=== PATIENT | female | born 1950 | race Caucasian/White ===

== ENCOUNTER → 2016-11-23 | Outpatient (CLI) | payer MEDICARE, MEDICAID ==
[~2016-11-23] MED LIST: ASPIRIN1 POW PO; CALCIUM600 MG; CLINDAMYCIN HC300 MG PO; DAILY VALUE1 EACH PO; DILANTIN PO; HYDROCODONE BIT1 T11 PO; KEPPRA500 MG PO; LYRICA75 M1 PO; NAPROSYN500 MG PO; PERCOCET 325 MG1 TA7 PO; PREDNISONE20 MG PO; PREMPRO 0.3 MG-1 TA1; TRAMADOL HCL50 MG PO; ULTRAM50 MG PO; ZITHROMAX Z PA250 MG PO
== END | disposition home or self-care (01) ==
LOC: ORTHO 03:12
DX: M25.512 Pain in left shoulder (principal); M79.602 Pain in left arm

== ENCOUNTER → 2018-10-08 | Outpatient (CLI) | payer MEDICARE, MEDICAID ==
[~2018-10-08] MED LIST changes: +ASPIRIN CHEWABL81 MG PO; +CALCIUM500 M1 PO; +CEFTRIAXONE1 GM IJ; +CELECOXIB200 M1 PO; +ESTROVEN 155 M155 MG PO; +FLAGYL500 MG PO; +POTASSIUM CHLO20 ME4 PO; +VITAMIN D31 ML PO; +VOLTAREN100 GM T
[2018-10-08 09:54] LABS: BASO # 0.1 10*3/uL (0.0-0.1); BASO % 1.2 % (0.0-1.0); BUN 10 mg/dl (7-24); CHLORIDE 106 mmol/L (98-107); CREATININE 1.04 mg/dL (0.55-1.02); EOS # 0.2 10*3/uL (0.0-0.4); EOS % 2.7 % (1.0-4.0); HEMATOCRIT 46.1 % (37.0-47.0); HEMOGLOBIN 14.8 g/dl (12.0-16.0); LYMPH # 1.7 10*3/uL (1.3-4.4); LYMPH % 25.7 % (27.0-41.0); MEAN CELL VOLUME 91.7 fl (81.0-99.0); MEAN CORPUSCULAR HGB 29.4 pg (27.0-31.0); MEAN CORPUSCULAR HGB CONC 32.1 g/dl (33.0-37.0); MONO # 0.5 10*3/uL (0.1-1.0); MONO % 7.7 % (3.0-9.0); NEUT # 4.1 10*3/uL (2.3-7.9); NEUT % 62.5 % (47.0-73.0); PLATELET COUNT AUTOMATED 175 10*3/uL (130-400); POTASSIUM 4.2 mmol/L (3.5-5.1); RED BLOOD COUNT 5.03 10*6/uL (4.10-5.10); RED CELL DISTRI WIDTH 14.6 % (0-14.5); SODIUM 140 mmol/L (136-145); WHITE BLOOD COUNT 6.6 10*3/uL (4.8-10.8)
== END | disposition home or self-care (01) ==
LOC: LAB 09:06
PROVIDERS: Orthopaedic Surgery
DX: Z79.1 Long term (current) use of non-steroidal anti-inflammatories (NSAID) (principal)

== ENCOUNTER → 2019-07-19 | Outpatient (CLI) | payer MEDICARE, MEDICAID | END | disposition home or self-care (01) | LOC: ORTHO 00:33 | DX: M65.311 Trigger thumb, right thumb (principal); M65.332 Trigger finger, left middle finger ==

== ENCOUNTER → 2020-03-05 | Outpatient (CLI) | payer MEDICARE, MEDICAID | END | disposition home or self-care (01) | LOC: RAD 10:56 | DX: Z01.818 Encounter for other preprocedural examination (principal); J43.9 Emphysema, unspecified; M16.11 Unilateral primary osteoarthritis, right hip ==

== ENCOUNTER 2021-03-06 08:39 | Inpatient (IN) | payer MEDICARE, MEDICAID ==
[~2021-03-06] VITALS: Wt 72.6 kg
[2021-03-06 08:49] VITALS: BP 116/73
[2021-03-06 09:26] LABS: BASO # 0.1 10*3/uL (0.0-0.1); BASO % 0.8 % (0.0-1.0); EOS # 0.1 10*3/uL (0.0-0.4); EOS % 1.2 % (1.0-4.0); HEMATOCRIT 48.8 % (37.0-47.0); LYMPH # 1.4 10*3/uL (1.3-4.4); LYMPH % 18.3 % (27.0-41.0); MEAN CELL VOLUME 92.2 fl (81.0-99.0); MEAN CORPUSCULAR HGB 29.9 pg (27.0-31.0); MEAN CORPUSCULAR HGB CONC 32.4 g/dl (33.0-37.0); MEAN PLATELET VOLUME 12.2 fl (9.6-12.3); MONO # 0.5 10*3/uL (0.1-1.0); MONO % 6.8 % (3.0-9.0); NEUT # 5.7 10*3/uL (2.3-7.9); NEUT % 72.5 % (47.0-73.0); PLATELET COUNT AUTOMATED 172 10*3/uL (130-400); RED BLOOD COUNT 5.29 10*6/uL (4.10-5.10); RED CELL DISTRI WIDTH 15.3 % (0-14.5); WHITE BLOOD COUNT 7.8 10*3/uL (4.8-10.8)
[2021-03-06 09:43] LABS: ALBUMIN 3.2 gm/dl (3.1-4.5); ALKALINE PHOSPHATASE 91 U/L (45-117); BUN 9 mg/dl (7-24); CHLORIDE 111 mmol/L (98-107); CREATININE 1.12 mg/dL (0.55-1.02); LIPASE 121 U/L (73-393); POTASSIUM 3.7 mmol/L (3.5-5.1); SGOT/AST 15 IU/L (3-35); SGPT/ALT 15 U/L (12-78); SODIUM 146 mmol/L (136-145); TOTAL PROTEIN 6.4 gm/dL (6.4-8.2)
[2021-03-06 09:53] LABS: PHENYTOIN (DILANTIN) < 0.4 ug/ml (10-20); TROPONIN I 0.078 ng/ml (<0.045)
[2021-03-06 11:00] VITALS: BP 116/74
[2021-03-06 11:36] LABS: BILIRUBIN Negative (Negative); BLOOD 1+ (Negative); CLARITY Turbid (Clear); COLOR Yellow (Yellow); GLUCOSE Negative (Negative); KETONE Trace (Negative); LEUKO ESTERASE 3+ (Negative); NITRITE Positive (Negative); PH 7.5 (4.5-8.0)
[2021-03-06] MEDS ORDERED: KEPPRA500 MG PO (11:39)
[2021-03-06] MEDS ORDERED: TRAMADOL HCL50 MG PO (11:40)
[2021-03-06 11:48] LABS: BACTERIA 4+; WBC TNTC wbc/hpf (0-5)
[2021-03-06 13:08] VITALS: BP 116/72
[2021-03-06 15:25] VITALS: BP 118/70
[2021-03-06 17:16] VITALS: BP 118/72
[2021-03-06 19:30] VITALS: BP 118/72
[2021-03-07 00:41] VITALS: BP 105/54
[2021-03-07 02:08] VITALS: BP 105/60
[2021-03-07 06:47] VITALS: BP 110/60
[2021-03-07 07:24] VITALS: BP 123/69
[2021-03-07] MEDS ORDERED: PROTONIX40 MG PO (11:39)
[2021-03-07] MEDS ORDERED: ZOFRAN4 MG PO (11:39)
[2021-03-07] MEDS ORDERED: CIPRO500 MG PO (11:39)
== END 2021-03-07 11:30 | disposition home or self-care (01) | DRG 641 ==
LOC: ED 08:39 → EDHOLD 10:44
PROVIDERS: Emergency Medicine; ADMIT Internal Medicine; ATTEND Internal Medicine
DX: E86.0 Dehydration (principal); N39.0 Urinary tract infection, site not specified; E87.0 Hyperosmolality and hypernatremia; R11.2 Nausea with vomiting, unspecified; R79.89 Other specified abnormal findings of blood chemistry; R13.10 Dysphagia, unspecified; E87.8 Other disorders of electrolyte and fluid balance, not elsewhere classified; I10 Essential (primary) hypertension; G62.9 Polyneuropathy, unspecified; E03.9 Hypothyroidism, unspecified; E78.5 Hyperlipidemia, unspecified; K21.9 Gastro-esophageal reflux disease without esophagitis; Z90.49 Acquired absence of other specified parts of digestive tract; Z88.0 Allergy status to penicillin; Z98.51 Tubal ligation status; Z82.49 Family history of ischemic heart disease and other diseases of the circulatory system; Z83.3 Family history of diabetes mellitus; Z79.82 Long term (current) use of aspirin

== ENCOUNTER 2021-06-14 12:27 | Inpatient (IN) | payer MEDICARE, MEDICAID ==
[~2021-06-14] VITALS: Ht 172.7 cm; Wt 85.4 kg
[~2021-06-14 12:27] MED LIST changes: +CIPRO500 MG PO; +PROTONIX40 MG PO; +ZOFRAN4 MG PO
[2021-06-14 12:51] VITALS: BP 107/77
[2021-06-14 16:36] LABS: BASO # 0.1 10*3/uL (0.0-0.1); BASO % 0.3 % (0.0-1.0); EOS % 0.3 % (1.0-4.0); HEMATOCRIT 45.3 % (37.0-47.0); LYMPH # 3.3 10*3/uL (1.3-4.4); LYMPH % 22.8 % (27.0-41.0); MEAN CORPUSCULAR HGB 30.1 pg (27.0-31.0); MEAN PLATELET VOLUME 12.4 fl (9.6-12.3); MONO # 0.8 10*3/uL (0.1-1.0); MONO % 5.8 % (3.0-9.0); NEUT # 10.2 10*3/uL (2.3-7.9); NEUT % 70.5 % (47.0-73.0); PLATELET COUNT AUTOMATED 267 10*3/uL (130-400); RED BLOOD COUNT 4.82 10*6/uL (4.10-5.10); WHITE BLOOD COUNT 14.5 10*3/uL (4.8-10.8)
[2021-06-14 16:54] LABS: ALBUMIN 3.3 gm/dl (3.1-4.5); CREATININE 1.34 mg/dL (0.55-1.02); POTASSIUM 4.1 mmol/L (3.5-5.1); TOTAL PROTEIN 7.4 gm/dL (6.4-8.2)
[2021-06-14 17:00] VITALS: BP 107/74
[2021-06-14] MEDS ORDERED: ELIQUIS5 M1 PO (18:11)
[2021-06-14 19:38] VITALS: BP 118/62
[2021-06-15] VITALS: BP 112/56
[2021-06-15 06:33] LABS: BASO # 0.1 10*3/uL (0.0-0.1); BASO % 0.8 % (0.0-1.0); EOS # 0.1 10*3/uL (0.0-0.4); EOS % 0.7 % (1.0-4.0); HEMATOCRIT 41.6 % (37.0-47.0); LYMPH # 2.4 10*3/uL (1.3-4.4); MEAN CELL VOLUME 95.9 fl (81.0-99.0); MEAN CORPUSCULAR HGB 30.4 pg (27.0-31.0); MEAN CORPUSCULAR HGB CONC 31.7 g/dl (33.0-37.0); MEAN PLATELET VOLUME 12.3 fl (9.6-12.3); MONO # 0.5 10*3/uL (0.1-1.0); NEUT # 7.4 10*3/uL (2.3-7.9); NEUT % 70.1 % (47.0-73.0); PLATELET COUNT AUTOMATED 235 10*3/uL (130-400); RED BLOOD COUNT 4.34 10*6/uL (4.10-5.10); WHITE BLOOD COUNT 10.6 10*3/uL (4.8-10.8)
[2021-06-15 06:51] LABS: ALBUMIN 2.9 gm/dl (3.1-4.5); CREATININE 1.29 mg/dL (0.55-1.02); POTASSIUM 3.8 mmol/L (3.5-5.1); TOTAL PROTEIN 6.7 gm/dL (6.4-8.2)
[2021-06-15 06:59] LABS: THYROID STIM HORMONE (HS) 2.51 uIU/ml (0.358-4.75)
[2021-06-15 08:00] VITALS: BP 98/59
[2021-06-15 10:37] VITALS: BP 96/48
[2021-06-15 11:47] VITALS: BP 85/48
[2021-06-15 12:02] VITALS: BP 94/52
[2021-06-15 12:17] VITALS: BP 96/53
[2021-06-15] MEDS ORDERED: Carafate1 GM PO (13:09)
[2021-06-15] MEDS ORDERED: PROTONIX40 MG PO (13:09)
== END 2021-06-15 14:18 | disposition home or self-care (01) | DRG 384 ==
LOC: ED 12:27 → 5E 17:31 → EDHOLD 17:31 → 5E 19:30
PROVIDERS: Family Medicine; Student in an Organized Health Care Education/Training Program; ADMIT Internal Medicine; ATTEND Internal Medicine
PROC: 0DB68ZX Excision of Stomach, Via Natural or Artificial Opening Endoscopic, Diagnostic (ICD-10-PCS; principal; 2021-06-15)
DX: K26.3 Acute duodenal ulcer without hemorrhage or perforation (principal); R65.10 Systemic inflammatory response syndrome (SIRS) of non-infectious origin without acute organ dysfunction; I80.201 Phlebitis and thrombophlebitis of unspecified deep vessels of right lower extremity; E86.0 Dehydration; R13.10 Dysphagia, unspecified; N18.32 Chronic kidney disease, stage 3b; K21.9 Gastro-esophageal reflux disease without esophagitis; I12.9 Hypertensive chronic kidney disease with stage 1 through stage 4 chronic kidney disease, or unspecified chronic kidney disease; E78.5 Hyperlipidemia, unspecified; Z96.642 Presence of left artificial hip joint; Z96.652 Presence of left artificial knee joint; E87.8 Other disorders of electrolyte and fluid balance, not elsewhere classified; K21.00 Gastro-esophageal reflux disease with esophagitis, without bleeding; Z88.0 Allergy status to penicillin; Z82.49 Family history of ischemic heart disease and other diseases of the circulatory system; Z90.49 Acquired absence of other specified parts of digestive tract

== ENCOUNTER 2021-12-03 12:29 | Inpatient (IN) | payer MEDICARE, MEDICAID ==
[~2021-12-03] VITALS: Ht 172.7 cm; Wt 84.6 kg
[~2021-12-03 12:29] MED LIST changes: +Carafate1 GM PO; +ELIQUIS5 M1 PO
[2021-12-03 12:43] VITALS: BP 135/50
[2021-12-03 13:23] LABS: BASO # 0.1 10*3/uL (0.0-0.1); BASO % 0.8 % (0.0-1.0); EOS # 0.1 10*3/uL (0.0-0.4); EOS % 1.1 % (1.0-4.0); HEMATOCRIT 40.8 % (37.0-47.0); LYMPH # 1.9 10*3/uL (1.3-4.4); LYMPH % 18.5 % (27.0-41.0); MEAN CELL VOLUME 87.4 fl (81.0-99.0); MEAN CORPUSCULAR HGB 28.3 pg (27.0-31.0); MEAN CORPUSCULAR HGB CONC 32.4 g/dl (33.0-37.0); MEAN PLATELET VOLUME 12.3 fl (9.6-12.3); MONO # 0.6 10*3/uL (0.1-1.0); MONO % 6.1 % (3.0-9.0); NEUT # 7.5 10*3/uL (2.3-7.9); NEUT % 73.2 % (47.0-73.0); PLATELET COUNT AUTOMATED 209 10*3/uL (130-400); RED BLOOD COUNT 4.67 10*6/uL (4.10-5.10); WHITE BLOOD COUNT 10.3 10*3/uL (4.8-10.8)
[2021-12-03 13:37] LABS: ALKALINE PHOSPHATASE 65 U/L (45-117); BUN 42 mg/dl (7-24); CHLORIDE 103 mmol/L (98-107); CREATININE 7.38 mg/dL (0.55-1.02); SGOT/AST 33 IU/L (3-35); SGPT/ALT 18 U/L (12-78); SODIUM 139 mmol/L (136-145)
[2021-12-03 13:50] LABS: PHENYTOIN (DILANTIN) < 0.4 ug/ml (10-20)
[2021-12-03 17:45] VITALS: BP 138/53
[2021-12-03 17:55] VITALS: BP 118/62
[2021-12-03 18:27] LABS: BILIRUBIN Negative (Negative); BLOOD 2+ (Negative); CLARITY Cloudy (Clear); COLOR Yellow (Yellow); GLUCOSE Negative (Negative); KETONE Trace (Negative); LEUKO ESTERASE 3+ (Negative); NITRITE Positive (Negative); UROBILINOGEN 0.2 E.U./dl (0.0-1.0)
[2021-12-03 18:39] LABS: BACTERIA 4+; WBC TNTC wbc/hpf (0-5)
[2021-12-03 20:00] VITALS: BP 116/57
[2021-12-03 20:31] LABS: CREATININE 7.27 mg/dL (0.55-1.02); POTASSIUM 3.5 mmol/L (3.5-5.1)
[2021-12-04] VITALS: BP 112/55
[2021-12-04 05:40] LABS: CREATININE 6.38 mg/dL (0.55-1.02); POTASSIUM 3.5 mmol/L (3.5-5.1); TOTAL PROTEIN 5.1 gm/dL (6.4-8.2)
[2021-12-04 06:10] LABS: BASO # 0.1 10*3/uL (0.0-0.1); BASO % 0.9 % (0.0-1.0); EOS # 0.3 10*3/uL (0.0-0.4); EOS % 3.8 % (1.0-4.0); HEMATOCRIT 33.4 % (37.0-47.0); LYMPH % 29.7 % (27.0-41.0); MEAN CELL VOLUME 89.1 fl (81.0-99.0); MEAN CORPUSCULAR HGB 29.3 pg (27.0-31.0); MEAN CORPUSCULAR HGB CONC 32.9 g/dl (33.0-37.0); MONO # 0.4 10*3/uL (0.1-1.0); NEUT % 59.5 % (47.0-73.0); PLATELET COUNT AUTOMATED 171 10*3/uL (130-400); RED BLOOD COUNT 3.75 10*6/uL (4.10-5.10); RED CELL DISTRI WIDTH 15.9 % (0-14.5); WHITE BLOOD COUNT 6.8 10*3/uL (4.8-10.8)
[2021-12-04 08:00] VITALS: BP 110/49
[2021-12-04 12:00] VITALS: BP 115/55
[2021-12-04 16:00] VITALS: BP 112/47
[2021-12-04 16:57] LABS: VITAMIN D, 25-HYDROXY 57.4 ng/mL (30-100)
[2021-12-04 20:00] VITALS: BP 112/62
[2021-12-05] VITALS: BP 101/49
[2021-12-05 08:00] VITALS: BP 92/40
[2021-12-05 08:46] LABS: BASO # 0.1 10*3/uL (0.0-0.1); BASO % 0.7 % (0.0-1.0); EOS # 0.2 10*3/uL (0.0-0.4); HEMATOCRIT 38.7 % (37.0-47.0); LYMPH # 1.4 10*3/uL (1.3-4.4); LYMPH % 19.6 % (27.0-41.0); MEAN CELL VOLUME 87.8 fl (81.0-99.0); MEAN CORPUSCULAR HGB 28.1 pg (27.0-31.0); MEAN PLATELET VOLUME 12.9 fl (9.6-12.3); MONO # 0.4 10*3/uL (0.1-1.0); MONO % 6.2 % (3.0-9.0); NEUT % 70.4 % (47.0-73.0); PLATELET COUNT AUTOMATED 185 10*3/uL (130-400); RED BLOOD COUNT 4.41 10*6/uL (4.10-5.10); RED CELL DISTRI WIDTH 15.9 % (0-14.5); WHITE BLOOD COUNT 7.1 10*3/uL (4.8-10.8)
[2021-12-05 08:58] LABS: CREATININE 6.22 mg/dL (0.55-1.02); POTASSIUM 3.5 mmol/L (3.5-5.1)
[2021-12-05 12:00] VITALS: BP 124/56
[2021-12-05 16:00] VITALS: BP 122/76
[2021-12-05 20:00] VITALS: BP 107/52
[2021-12-06] VITALS: BP 111/55
[2021-12-06 05:21] LABS: CREATININE 5.59 mg/dL (0.55-1.02); POTASSIUM 3.3 mmol/L (3.5-5.1)
[2021-12-06 06:13] LABS: BASO % 0.6 % (0.0-1.0); EOS # 0.3 10*3/uL (0.0-0.4); EOS % 3.7 % (1.0-4.0); HEMATOCRIT 35.8 % (37.0-47.0); LYMPH # 1.6 10*3/uL (1.3-4.4); LYMPH % 23.2 % (27.0-41.0); MEAN CELL VOLUME 87.3 fl (81.0-99.0); MEAN CORPUSCULAR HGB CONC 32.1 g/dl (33.0-37.0); MONO # 0.5 10*3/uL (0.1-1.0); NEUT # 4.4 10*3/uL (2.3-7.9); NEUT % 65.2 % (47.0-73.0); PLATELET COUNT AUTOMATED 172 10*3/uL (130-400); RED CELL DISTRI WIDTH 15.8 % (0-14.5); WHITE BLOOD COUNT 6.7 10*3/uL (4.8-10.8)
[2021-12-06 08:00] VITALS: BP 110/54
[2021-12-06 12:00] VITALS: BP 110/50
[2021-12-06 16:00] VITALS: BP 102/50
[2021-12-06 20:00] VITALS: BP 111/55
[2021-12-07] VITALS: BP 117/56
[2021-12-07 06:05] LABS: CREATININE 4.96 mg/dL (0.55-1.02); POTASSIUM 3.4 mmol/L (3.5-5.1)
[2021-12-07 06:27] LABS: BASO % 0.6 % (0.0-1.0); EOS # 0.2 10*3/uL (0.0-0.4); EOS % 3.3 % (1.0-4.0); LYMPH # 1.3 10*3/uL (1.3-4.4); LYMPH % 18.5 % (27.0-41.0); MEAN CELL VOLUME 86.6 fl (81.0-99.0); MEAN CORPUSCULAR HGB 28.5 pg (27.0-31.0); MEAN CORPUSCULAR HGB CONC 32.9 g/dl (33.0-37.0); MEAN PLATELET VOLUME 13.3 fl (9.6-12.3); MONO # 0.5 10*3/uL (0.1-1.0); MONO % 6.7 % (3.0-9.0); NEUT # 4.9 10*3/uL (2.3-7.9); NEUT % 70.5 % (47.0-73.0); PLATELET COUNT AUTOMATED 156 10*3/uL (130-400); RED BLOOD COUNT 4.04 10*6/uL (4.10-5.10); RED CELL DISTRI WIDTH 16.1 % (0-14.5); WHITE BLOOD COUNT 6.9 10*3/uL (4.8-10.8)
[2021-12-07 08:00] VITALS: BP 96/52
[2021-12-07 12:00] VITALS: BP 112/52
[2021-12-07 16:00] VITALS: BP 114/89
[2021-12-07 20:00] VITALS: BP 105/54
[2021-12-08] VITALS: BP 101/51
[2021-12-08 05:22] LABS: CREATININE 4.27 mg/dL (0.55-1.02)
[2021-12-08 06:12] LABS: BASO % 0.7 % (0.0-1.0); EOS # 0.3 10*3/uL (0.0-0.4); EOS % 4.6 % (1.0-4.0); HEMATOCRIT 34.6 % (37.0-47.0); LYMPH # 1.6 10*3/uL (1.3-4.4); LYMPH % 27.7 % (27.0-41.0); MEAN CELL VOLUME 87.6 fl (81.0-99.0); MEAN CORPUSCULAR HGB 28.4 pg (27.0-31.0); MEAN CORPUSCULAR HGB CONC 32.4 g/dl (33.0-37.0); MEAN PLATELET VOLUME 12.9 fl (9.6-12.3); MONO # 0.4 10*3/uL (0.1-1.0); MONO % 6.7 % (3.0-9.0); NEUT # 3.6 10*3/uL (2.3-7.9); NEUT % 60.1 % (47.0-73.0); PLATELET COUNT AUTOMATED 155 10*3/uL (130-400); RED BLOOD COUNT 3.95 10*6/uL (4.10-5.10); RED CELL DISTRI WIDTH 16.3 % (0-14.5); WHITE BLOOD COUNT 5.9 10*3/uL (4.8-10.8)
[2021-12-08 08:00] VITALS: BP 110/58
[2021-12-08 12:00] VITALS: BP 104/54
[2021-12-08] MEDS ORDERED: LYRICA25 M1 PO (13:08)
== END 2021-12-08 13:40 | disposition home or self-care (01) | DRG 682 ==
LOC: ED 12:29 → 4E 16:02 → EDHOLD 16:02 → 4E 17:51
PROVIDERS: Hospitalist; Internal Medicine; Nurse Practitioner Family; Physical Therapist; Registered Nurse; Student in an Organized Health Care Education/Training Program; ADMIT Emergency Medicine; ATTEND Emergency Medicine
DX: N17.0 Acute kidney failure with tubular necrosis (principal); E43 Unspecified severe protein-calorie malnutrition; N30.01 Acute cystitis with hematuria; I12.9 Hypertensive chronic kidney disease with stage 1 through stage 4 chronic kidney disease, or unspecified chronic kidney disease; N18.30 Chronic kidney disease, stage 3 unspecified; I67.1 Cerebral aneurysm, nonruptured; W19.XXXA Unspecified fall, initial encounter; E83.52 Hypercalcemia; E78.5 Hyperlipidemia, unspecified; K21.9 Gastro-esophageal reflux disease without esophagitis; G62.9 Polyneuropathy, unspecified; R00.1 Bradycardia, unspecified; E16.2 Hypoglycemia, unspecified; B96.20 Unspecified Escherichia coli [E. coli] as the cause of diseases classified elsewhere; Z96.642 Presence of left artificial hip joint; Z96.652 Presence of left artificial knee joint; Z88.0 Allergy status to penicillin; Y93.89 Activity, other specified; Z90.49 Acquired absence of other specified parts of digestive tract; Y92.89 Other specified places as the place of occurrence of the external cause; Y99.8 Other external cause status; Z79.899 Other long term (current) drug therapy; Z68.28 Body mass index [BMI] 28.0-28.9, adult

== ENCOUNTER → 2022-01-12 | Outpatient (CLI) | payer MEDICARE, MEDICAID ==
[~2022-01-12] MED LIST changes: +LYRICA25 M1 PO
[2022-01-12 12:54] LABS: CREATININE 1.63 mg/dL (0.55-1.02); POTASSIUM 2.9 mmol/L (3.5-5.1); TOTAL PROTEIN 6.1 gm/dL (6.4-8.2)
== END | disposition home or self-care (01) ==
LOC: LAB 11:46
PROVIDERS: ATTEND Nurse Practitioner Family
DX: N18.32 Chronic kidney disease, stage 3b (principal)

== ENCOUNTER 2022-03-04 08:09 | Emergency (ER) | payer MEDICARE, MEDICAID ==
[2022-03-04] MEDS ORDERED: KETOROLAC10 MG PO (10:11)
[2022-03-04] MEDS ORDERED: PREDNISONE20 M1 PO (10:11)
== END 2022-03-04 10:12 | disposition home or self-care (01) ==
LOC: ED 08:09
DX: M47.896 Other spondylosis, lumbar region (principal); G89.29 Other chronic pain; M54.50 Low back pain, unspecified; Z79.82 Long term (current) use of aspirin; Z90.49 Acquired absence of other specified parts of digestive tract; Z98.51 Tubal ligation status; Z98.890 Other specified postprocedural states; Z87.891 Personal history of nicotine dependence

== ENCOUNTER → 2022-04-11 | Outpatient (CLI) | payer MEDICARE, MEDICAID ==
[~2022-04-11] MED LIST changes: +KETOROLAC10 MG PO; +PREDNISONE20 M1 PO
[2022-04-11 09:29] LABS: BASO # 0.1 10*3/uL (0.0-0.1); BASO % 0.8 % (0.0-1.0); EOS # 0.1 10*3/uL (0.0-0.4); HEMATOCRIT 44.5 % (37.0-47.0); LYMPH % 22.6 % (27.0-41.0); MEAN CELL VOLUME 93.1 fl (81.0-99.0); MEAN CORPUSCULAR HGB 29.7 pg (27.0-31.0); MEAN CORPUSCULAR HGB CONC 31.9 g/dl (33.0-37.0); MEAN PLATELET VOLUME 11.1 fl (9.6-12.3); MONO # 0.6 10*3/uL (0.1-1.0); MONO % 7.4 % (3.0-9.0); NEUT # 5.9 10*3/uL (2.3-7.9); NEUT % 67.9 % (47.0-73.0); PLATELET COUNT AUTOMATED 270 10*3/uL (130-400); RED BLOOD COUNT 4.78 10*6/uL (4.10-5.10); RED CELL DISTRI WIDTH 15.8 % (0-14.5); WHITE BLOOD COUNT 8.6 10*3/uL (4.8-10.8)
[2022-04-11 09:55] LABS: POTASSIUM 4.6 mmol/L (3.5-5.1)
[2022-04-11 09:59] LABS: CREATININE 1.5 mg/dL (0.55-1.02)
[2022-04-11 10:42] LABS: VITAMIN D, 25-HYDROXY 51.8 ng/mL (30-100)
== END | disposition home or self-care (01) ==
LOC: LAB 09:02
PROVIDERS: ATTEND Internal Medicine Nephrology
DX: N18.30 Chronic kidney disease, stage 3 unspecified (principal); N25.81 Secondary hyperparathyroidism of renal origin; D63.1 Anemia in chronic kidney disease

== ENCOUNTER → 2022-04-12 | Outpatient (CLI) | payer MEDICARE, MEDICAID ==
[2022-04-12 08:55] LABS: BILIRUBIN Negative (Negative); BLOOD 3+ (Negative); CLARITY Turbid (Clear); COLOR Dark Yellow (Yellow); GLUCOSE Negative (Negative); KETONE Trace (Negative); LEUKO ESTERASE 2+ (Negative); NITRITE Positive (Negative); PH 5.5 (4.5-8.0); SPECIFIC GRAVITY 1.025 (1.001-1.030)
[2022-04-12 14:06] LABS: RBC TNTC rbc/hpf (0-2); WBC TNTC wbc/hpf (0-5)
[2022-04-12 14:07] LABS: BACTERIA 4+
== END | disposition home or self-care (01) ==
LOC: LAB 08:38
PROVIDERS: ATTEND Internal Medicine Nephrology
DX: N18.30 Chronic kidney disease, stage 3 unspecified (principal); N25.81 Secondary hyperparathyroidism of renal origin; D63.1 Anemia in chronic kidney disease; Z79.899 Other long term (current) drug therapy

== ENCOUNTER 2022-06-18 08:36 | Emergency (ER) | payer MEDICARE, MEDICAID ==
[~2022-06-18] VITALS: Ht 172.7 cm; Wt 77.1 kg
[2022-06-18] MEDS ORDERED: LIDODERM1 EACH T (10:43)
== END 2022-06-18 10:55 | disposition home or self-care (01) ==
LOC: ED 08:36
DX: S32.038A Other fracture of third lumbar vertebra, initial encounter for closed fracture (principal); F17.200 Nicotine dependence, unspecified, uncomplicated; Z88.0 Allergy status to penicillin; Z79.899 Other long term (current) drug therapy; Z79.82 Long term (current) use of aspirin; Z90.49 Acquired absence of other specified parts of digestive tract; Z96.652 Presence of left artificial knee joint; Z96.641 Presence of right artificial hip joint; Z98.890 Other specified postprocedural states; W10.8XXA Fall (on) (from) other stairs and steps, initial encounter; Y93.89 Activity, other specified; Y92.89 Other specified places as the place of occurrence of the external cause; Y99.8 Other external cause status

== ENCOUNTER → 2022-12-15 | Outpatient (CLI) | payer MEDICARE, MEDICAID ==
[~2022-12-15] MED LIST changes: +ATORVASTATIN CA40 M1 PO; +BRILINTA90 M1 PO; +HYDROCODONE-AC1 EAC1 PO; +LIDODERM1 EACH T; +OMNICEF300 MG PO; +PANTOPRAZOLE SO40 MG PO; +VITAMIN B125000 MCG PO; +VITAMIN D250 MCG PO
== END | disposition home or self-care (01) ==
LOC: ORTHO 08:16
PROVIDERS: ATTEND Orthopaedic Surgery
DX: S42.221D 2-part displaced fracture of surgical neck of right humerus, subsequent encounter for fracture with routine healing (principal); X58.XXXD Exposure to other specified factors, subsequent encounter

== ENCOUNTER 2022-12-27 22:41 | Emergency (ER) | payer MEDICARE, MEDICAID ==
[~2022-12-27] VITALS: Ht 172.7 cm; Wt 86.2 kg
== END 2022-12-28 01:05 | disposition home or self-care (01) ==
LOC: ED 22:41
DX: S00.83XA Contusion of other part of head, initial encounter (principal); Z88.0 Allergy status to penicillin; Z96.652 Presence of left artificial knee joint; Z90.49 Acquired absence of other specified parts of digestive tract; Z98.890 Other specified postprocedural states; Z98.51 Tubal ligation status; F17.200 Nicotine dependence, unspecified, uncomplicated; W01.10XA Fall on same level from slipping, tripping and stumbling with subsequent striking against unspecified object, initial encounter; Y93.89 Activity, other specified; Y92.009 Unspecified place in unspecified non-institutional (private) residence as the place of occurrence of the external cause; Y99.8 Other external cause status

== ENCOUNTER → 2023-01-06 | Outpatient (CLI) | payer MEDICARE, MEDICAID | END | disposition home or self-care (01) | LOC: ORTHO 02:08 | PROVIDERS: ATTEND Orthopaedic Surgery | DX: S42.221D 2-part displaced fracture of surgical neck of right humerus, subsequent encounter for fracture with routine healing (principal); X58.XXXD Exposure to other specified factors, subsequent encounter ==

== ENCOUNTER → 2023-01-20 | Outpatient (CLI) | payer MEDICARE, MEDICAID | END | disposition home or self-care (01) | LOC: ORTHO 01-19 12:30 | PROVIDERS: ATTEND Orthopaedic Surgery | DX: S42.221D 2-part displaced fracture of surgical neck of right humerus, subsequent encounter for fracture with routine healing (principal); X58.XXXD Exposure to other specified factors, subsequent encounter ==

== ENCOUNTER → 2023-03-03 | Outpatient (CLI) | payer MEDICARE, MEDICAID | END | disposition home or self-care (01) | LOC: ORTHO 01:20 | PROVIDERS: ATTEND Orthopaedic Surgery | DX: S42.221D 2-part displaced fracture of surgical neck of right humerus, subsequent encounter for fracture with routine healing (principal); I70.0 Atherosclerosis of aorta; X58.XXXA Exposure to other specified factors, initial encounter ==

== ENCOUNTER 2023-03-12 12:16 | Inpatient (IN) | payer MEDICARE, MEDICAID ==
[~2023-03-12] VITALS: Ht 172.7 cm; Wt 77.8 kg
[2023-03-12 12:34] VITALS: BP 101/67
[2023-03-12 13:26] LABS: BASO % 0.5 % (0.0-1.0); EOS % 0.1 % (1.0-4.0); HEMATOCRIT 41.4 % (37.0-47.0); LYMPH # 1.4 10*3/uL (1.3-4.4); LYMPH % 18.1 % (27.0-41.0); MEAN CELL VOLUME 89.8 fl (81.0-99.0); MEAN CORPUSCULAR HGB 28.2 pg (27.0-31.0); MEAN CORPUSCULAR HGB CONC 31.4 g/dl (33.0-37.0); MEAN PLATELET VOLUME 12.2 fl (9.6-12.3); MONO # 0.5 10*3/uL (0.1-1.0); MONO % 5.9 % (3.0-9.0); NEUT # 5.7 10*3/uL (2.3-7.9); NEUT % 75.1 % (47.0-73.0); PLATELET COUNT AUTOMATED 278 10*3/uL (130-400); RED BLOOD COUNT 4.61 10*6/uL (4.10-5.10); RED CELL DISTRI WIDTH 17.8 % (0-14.5); WHITE BLOOD COUNT 7.6 10*3/uL (4.8-10.8)
[2023-03-12 13:49] LABS: POTASSIUM 4.8 mmol/L (3.4-5.1); TOTAL PROTEIN 5.4 gm/dL (6.0-8.0)
[2023-03-12 16:30] VITALS: BP 123/57
[2023-03-12] MEDS ORDERED: LEVETIRACETAM500 MG PO (17:02)
[2023-03-12] MEDS ORDERED: ESTROVEN 155 M155 MG PO (17:05)
[2023-03-12] MEDS ORDERED: LIPITOR40 MG PO (17:06)
[2023-03-12 20:00] VITALS: BP 117/56
[2023-03-13] VITALS: BP 116/53
[2023-03-13 08:00] VITALS: BP 105/60
[2023-03-13 09:05] LABS: BASO % 0.4 % (0.0-1.0); EOS % 0.1 % (1.0-4.0); HEMATOCRIT 39.5 % (37.0-47.0); LYMPH # 1.3 10*3/uL (1.3-4.4); LYMPH % 18.7 % (27.0-41.0); MEAN CORPUSCULAR HGB 28.6 pg (27.0-31.0); MEAN CORPUSCULAR HGB CONC 31.4 g/dl (33.0-37.0); MEAN PLATELET VOLUME 12.5 fl (9.6-12.3); MONO # 0.5 10*3/uL (0.1-1.0); MONO % 7.2 % (3.0-9.0); NEUT # 5.1 10*3/uL (2.3-7.9); NEUT % 73.2 % (47.0-73.0); PLATELET COUNT AUTOMATED 243 10*3/uL (130-400); RED BLOOD COUNT 4.34 10*6/uL (4.10-5.10); WHITE BLOOD COUNT 6.9 10*3/uL (4.8-10.8)
[2023-03-13 09:39] LABS: FREE T4 0.95 ng/dl (0.89-1.76); POTASSIUM 4.3 mmol/L (3.4-5.1); TOTAL PROTEIN 5.1 gm/dL (6.0-8.0)
[2023-03-13 12:00] VITALS: BP 112/87
[2023-03-13 16:00] VITALS: BP 117/60
[2023-03-13 20:00] VITALS: BP 96/50
[2023-03-14] VITALS: BP 97/55
[2023-03-14 08:00] VITALS: BP 107/56
[2023-03-14 12:00] VITALS: BP 110/58
[2023-03-14] MEDS ORDERED: LASIX40 MG PO (15:23)
[2023-03-14] MEDS ORDERED: METOPROLOL SUCC25 M2 PO (15:23)
[2023-03-14] MEDS ORDERED: LISINOPRIL2.5 MG PO (15:23)
[2023-03-14] MEDS ORDERED: K-TAB10 MEQ PO (15:23)
[2023-03-14 16:00] VITALS: BP 116/62
== END 2023-03-14 17:47 | disposition home or self-care (01) | DRG 291 ==
LOC: ED 12:16 → EDHOLD 15:05 → 5E 15:05
PROVIDERS: Nurse Practitioner Family; Student in an Organized Health Care Education/Training Program; ADMIT Internal Medicine; ATTEND Internal Medicine
DX: I13.0 Hypertensive heart and chronic kidney disease with heart failure and stage 1 through stage 4 chronic kidney disease, or unspecified chronic kidney disease (principal); E43 Unspecified severe protein-calorie malnutrition; N17.0 Acute kidney failure with tubular necrosis; I50.23 Acute on chronic systolic (congestive) heart failure; I24.8 Other forms of acute ischemic heart disease; Z96.641 Presence of right artificial hip joint; Z96.652 Presence of left artificial knee joint; I25.10 Atherosclerotic heart disease of native coronary artery without angina pectoris; E78.5 Hyperlipidemia, unspecified; G89.29 Other chronic pain; K21.9 Gastro-esophageal reflux disease without esophagitis; I25.5 Ischemic cardiomyopathy; G62.9 Polyneuropathy, unspecified; E87.8 Other disorders of electrolyte and fluid balance, not elsewhere classified; R79.89 Other specified abnormal findings of blood chemistry; E78.2 Mixed hyperlipidemia; N18.32 Chronic kidney disease, stage 3b; Z88.0 Allergy status to penicillin; Z90.49 Acquired absence of other specified parts of digestive tract; Z98.61 Coronary angioplasty status; Z98.51 Tubal ligation status; Z82.49 Family history of ischemic heart disease and other diseases of the circulatory system; Z68.27 Body mass index [BMI] 27.0-27.9, adult

== ENCOUNTER 2023-03-20 10:05 | Inpatient (IN) | payer MEDICARE, MEDICAID ==
[~2023-03-20] VITALS: Ht 172.7 cm; Wt 78.5 kg
[~2023-03-20 10:05] MED LIST changes: +K-TAB10 MEQ PO; +LASIX40 MG PO; +LEVETIRACETAM500 MG PO; +LIPITOR40 MG PO; +LISINOPRIL2.5 MG PO; +METOPROLOL SUCC25 M2 PO
[2023-03-20 10:20] VITALS: BP 93/46
[2023-03-20 10:24] VITALS: BP 93/46
[2023-03-20 11:23] LABS: BASO % 0.4 % (0.0-1.0); EOS % 0.1 % (1.0-4.0); LYMPH % 10.6 % (27.0-41.0); MEAN CELL VOLUME 89.7 fl (81.0-99.0); MEAN CORPUSCULAR HGB 28.4 pg (27.0-31.0); MEAN CORPUSCULAR HGB CONC 31.7 g/dl (33.0-37.0); MEAN PLATELET VOLUME 12.8 fl (9.6-12.3); MONO # 0.5 10*3/uL (0.1-1.0); MONO % 5.2 % (3.0-9.0); NEUT % 83.2 % (47.0-73.0); PLATELET COUNT AUTOMATED 263 10*3/uL (130-400); RED BLOOD COUNT 4.68 10*6/uL (4.10-5.10); RED CELL DISTRI WIDTH 17.6 % (0-14.5); WHITE BLOOD COUNT 9.6 10*3/uL (4.8-10.8)
[2023-03-20] MEDS ORDERED: METOPROLOL SUCC25 M2 PO (11:32)
[2023-03-20] MEDS ORDERED: BRILINTA90 M1 PO (11:34)
[2023-03-20] MEDS ORDERED: LEVETIRACETAM500 MG PO (11:34)
[2023-03-20 11:36] VITALS: BP 94/41
[2023-03-20 11:36] LABS: ACT PARTIAL THROMBO TIME 25.7 SECONDS (20.0-32.1)
[2023-03-20 11:36] LABS: BILIRUBIN Negative (Negative); BLOOD 1+ (Negative); CLARITY Cloudy (Clear); COLOR Yellow (Yellow); GLUCOSE Negative (Negative); KETONE Negative (Negative); LEUKO ESTERASE 3+ (Negative); NITRITE Positive (Negative); UROBILINOGEN 0.2 E.U./dl (0.0-1.0)
[2023-03-20 11:49] LABS: ALKALINE PHOSPHATASE 93 U/L (46-116); BUN 22 mg/dl (9-23); CHLORIDE 107 mmol/L (98-107); LIPASE 34 U/L (12-53); POTASSIUM 4.5 mmol/L (3.4-5.1); SGPT/ALT 8 U/L (10-49); TOTAL PROTEIN 5.8 gm/dL (6.0-8.0)
[2023-03-20 12:36] LABS: BACTERIA 4+; RBC 21-30 rbc/hpf (0-2); WBC TNTC wbc/hpf (0-5)
[2023-03-20 13:50] VITALS: BP 95/43
[2023-03-20 14:30] VITALS: BP 93/52
[2023-03-20 20:00] VITALS: BP 108/58; BP 96/59
[2023-03-21] VITALS (8 sets, daily range): BP systolic 70–102; BP diastolic 40–54
[2023-03-21 06:12] LABS: ALKALINE PHOSPHATASE 73 U/L (46-116); BUN 22 mg/dl (9-23); CHLORIDE 112 mmol/L (98-107); POTASSIUM 4.4 mmol/L (3.4-5.1); TOTAL PROTEIN 4.5 gm/dL (6.0-8.0)
[2023-03-21 06:13] LABS: SGPT/ALT < 7 U/L (10-49)
[2023-03-21 06:39] LABS: BASO % 0.6 % (0.0-1.0); EOS % 0.4 % (1.0-4.0); HEMATOCRIT 36.1 % (37.0-47.0); LYMPH # 1.3 10*3/uL (1.3-4.4); LYMPH % 18.1 % (27.0-41.0); MEAN CELL VOLUME 90.3 fl (81.0-99.0); MEAN CORPUSCULAR HGB 28.5 pg (27.0-31.0); MEAN CORPUSCULAR HGB CONC 31.6 g/dl (33.0-37.0); MEAN PLATELET VOLUME 12.8 fl (9.6-12.3); MONO # 0.5 10*3/uL (0.1-1.0); MONO % 6.4 % (3.0-9.0); NEUT # 5.3 10*3/uL (2.3-7.9); NEUT % 74.1 % (47.0-73.0); PLATELET COUNT AUTOMATED 188 10*3/uL (130-400); RED CELL DISTRI WIDTH 17.3 % (0-14.5); WHITE BLOOD COUNT 7.1 10*3/uL (4.8-10.8)
[2023-03-22] VITALS: BP 96/44
[2023-03-22 07:06] LABS: BASO # 0.1 10*3/uL (0.0-0.1); BASO % 0.7 % (0.0-1.0); EOS % 0.6 % (1.0-4.0); HEMATOCRIT 39.6 % (37.0-47.0); LYMPH # 1.6 10*3/uL (1.3-4.4); LYMPH % 22.9 % (27.0-41.0); MEAN CELL VOLUME 89.6 fl (81.0-99.0); MEAN CORPUSCULAR HGB 28.1 pg (27.0-31.0); MEAN CORPUSCULAR HGB CONC 31.3 g/dl (33.0-37.0); MEAN PLATELET VOLUME 12.5 fl (9.6-12.3); MONO # 0.5 10*3/uL (0.1-1.0); MONO % 6.4 % (3.0-9.0); NEUT # 4.8 10*3/uL (2.3-7.9); NEUT % 68.8 % (47.0-73.0); PLATELET COUNT AUTOMATED 223 10*3/uL (130-400); RED BLOOD COUNT 4.42 10*6/uL (4.10-5.10); RED CELL DISTRI WIDTH 17.2 % (0-14.5)
[2023-03-22 07:31] LABS: POTASSIUM 4.9 mmol/L (3.4-5.1)
[2023-03-22 08:00] VITALS: BP 91/53
[2023-03-22 12:00] VITALS: BP 99/71
[2023-03-22 16:00] VITALS: BP 115/49
[2023-03-22 20:00] VITALS: BP 115/45
[2023-03-23] VITALS: BP 112/54
[2023-03-23 05:47] LABS: POTASSIUM 4.8 mmol/L (3.4-5.1)
[2023-03-23 06:36] LABS: BASO # 0.1 10*3/uL (0.0-0.1); BASO % 0.7 % (0.0-1.0); EOS % 0.5 % (1.0-4.0); HEMATOCRIT 43.7 % (37.0-47.0); LYMPH # 2.1 10*3/uL (1.3-4.4); LYMPH % 25.7 % (27.0-41.0); MEAN CORPUSCULAR HGB CONC 28.4 g/dl (33.0-37.0); MEAN PLATELET VOLUME 12.5 fl (9.6-12.3); MONO # 0.5 10*3/uL (0.1-1.0); MONO % 6.3 % (3.0-9.0); NEUT # 5.5 10*3/uL (2.3-7.9); NEUT % 66.4 % (47.0-73.0); PLATELET COUNT AUTOMATED 242 10*3/uL (130-400); RED BLOOD COUNT 4.43 10*6/uL (4.10-5.10); RED CELL DISTRI WIDTH 17.6 % (0-14.5); WHITE BLOOD COUNT 8.2 10*3/uL (4.8-10.8)
[2023-03-23 06:41] LABS: MEAN CELL VOLUME 98.6 fl (81.0-99.0)
[2023-03-23 08:00] VITALS: BP 101/52
[2023-03-23 12:00] VITALS: BP 114/57
[2023-03-23 16:00] VITALS: BP 96/40
[2023-03-23 20:00] VITALS: BP 108/60
[2023-03-24] VITALS: BP 101/41
[2023-03-24 07:26] LABS: BASO # 0.1 10*3/uL (0.0-0.1); BASO % 0.8 % (0.0-1.0); EOS # 0.1 10*3/uL (0.0-0.4); EOS % 0.8 % (1.0-4.0); HEMATOCRIT 41.2 % (37.0-47.0); LYMPH # 1.5 10*3/uL (1.3-4.4); LYMPH % 20.2 % (27.0-41.0); MEAN CORPUSCULAR HGB 28.4 pg (27.0-31.0); MEAN CORPUSCULAR HGB CONC 31.1 g/dl (33.0-37.0); MEAN PLATELET VOLUME 12.2 fl (9.6-12.3); MONO # 0.4 10*3/uL (0.1-1.0); MONO % 5.6 % (3.0-9.0); NEUT # 5.4 10*3/uL (2.3-7.9); NEUT % 72.1 % (47.0-73.0); PLATELET COUNT AUTOMATED 262 10*3/uL (130-400); RED CELL DISTRI WIDTH 17.4 % (0-14.5); WHITE BLOOD COUNT 7.5 10*3/uL (4.8-10.8)
[2023-03-24 07:58] LABS: MEAN CELL VOLUME 91.6 fl (81.0-99.0)
[2023-03-24 08:00] VITALS: BP 134/78
[2023-03-24 08:01] LABS: POTASSIUM 4.9 mmol/L (3.4-5.1)
[2023-03-24] MEDS ORDERED: METOPROLOL SUCC25 M2 PO ×2 (09:58)
[2023-03-24] MEDS ORDERED: ATORVASTATIN CA40 M1 PO (09:58)
[2023-03-24] MEDS ORDERED: MIDODRINE HCL5 M1 PO (09:58)
[2023-03-24] MEDS ORDERED: LASIX20 MG PO ×2 (10:26)
[2023-03-24 12:00] VITALS: BP 131/70
[2023-03-26] MEDS ORDERED: METOPROLOL SUCC25 M2 PO (14:02)
[2023-03-26] MEDS ORDERED: LASIX40 MG PO (14:03)
[2023-03-26] MEDS ORDERED: FUROSEMIDE20 M1 PO (14:04)
[2023-03-29] MEDS ORDERED: HYDROCODONE-AC1 EAC1 PO (12:59)
[2023-03-29] MEDS ORDERED: LAXATIVE5 MG PO (12:59)
[2023-03-29] MEDS ORDERED: XARE15TA PO (12:59)
== END 2023-03-24 12:42 | disposition home or self-care (01) | DRG 640 ==
LOC: ED 10:05 → EDHOLD 12:17 → 4E 12:17
PROVIDERS: Emergency Medicine; Student in an Organized Health Care Education/Training Program; ADMIT Family Medicine; ATTEND Family Medicine
DX: E86.1 Hypovolemia (principal); E43 Unspecified severe protein-calorie malnutrition; N17.0 Acute kidney failure with tubular necrosis; N30.01 Acute cystitis with hematuria; I50.22 Chronic systolic (congestive) heart failure; I13.0 Hypertensive heart and chronic kidney disease with heart failure and stage 1 through stage 4 chronic kidney disease, or unspecified chronic kidney disease; I24.8 Other forms of acute ischemic heart disease; I47.20 Ventricular tachycardia, unspecified; Z16.12 Extended spectrum beta lactamase (ESBL) resistance; I95.89 Other hypotension; Z96.652 Presence of left artificial knee joint; Z96.641 Presence of right artificial hip joint; E86.0 Dehydration; I25.10 Atherosclerotic heart disease of native coronary artery without angina pectoris; N18.9 Chronic kidney disease, unspecified; E78.5 Hyperlipidemia, unspecified; N18.30 Chronic kidney disease, stage 3 unspecified; M47.896 Other spondylosis, lumbar region; I25.5 Ischemic cardiomyopathy; K21.9 Gastro-esophageal reflux disease without esophagitis; G89.29 Other chronic pain; M54.9 Dorsalgia, unspecified; G40.909 Epilepsy, unspecified, not intractable, without status epilepticus; B96.29 Other Escherichia coli [E. coli] as the cause of diseases classified elsewhere; Z88.0 Allergy status to penicillin; Z90.49 Acquired absence of other specified parts of digestive tract; Z95.5 Presence of coronary angioplasty implant and graft; Z98.51 Tubal ligation status; Z82.49 Family history of ischemic heart disease and other diseases of the circulatory system; I25.2 Old myocardial infarction

== ENCOUNTER 2023-04-18 14:02 | Emergency (ER) | payer MEDICARE, MEDICAID ==
[~2023-04-18] VITALS: Ht 157.4 cm
[~2023-04-18 14:02] MED LIST changes: +ERTAPENEM1 GM IM; +FUROSEMIDE20 M1 PO; +LASIX20 MG PO; +LAXATIVE5 MG PO; +MIDODRINE HCL5 M1 PO; +PREMIERPRO RX ME1 GM IV; +XARE15TA PO
[2023-04-18 14:42] LABS: BASO # 0.1 10*3/uL (0.0-0.1); BASO % 0.6 % (0.0-1.0); EOS # 0.1 10*3/uL (0.0-0.4); EOS % 0.6 % (1.0-4.0); HEMATOCRIT 35.7 % (37.0-47.0); LYMPH # 0.8 10*3/uL (1.3-4.4); LYMPH % 7.5 % (27.0-41.0); MEAN CELL VOLUME 86.9 fl (81.0-99.0); MEAN CORPUSCULAR HGB 28.2 pg (27.0-31.0); MEAN CORPUSCULAR HGB CONC 32.5 g/dl (33.0-37.0); MEAN PLATELET VOLUME 11.2 fl (9.6-12.3); MONO # 0.5 10*3/uL (0.1-1.0); MONO % 4.8 % (3.0-9.0); PLATELET COUNT AUTOMATED 396 10*3/uL (130-400); RED BLOOD COUNT 4.11 10*6/uL (4.10-5.10); RED CELL DISTRI WIDTH 15.5 % (0-14.5); WHITE BLOOD COUNT 10.4 10*3/uL (4.8-10.8)
[2023-04-18 15:12] LABS: BUN 24 mg/dl (9-23); CHLORIDE 100 mmol/L (98-107); POTASSIUM 2.5 mmol/L (3.4-5.1)
[2023-04-18 15:13] LABS: ETHYL ALCOHOL < 3.0 mg/dl (<3)
== END 2023-04-18 23:36 ==
LOC: ED 14:02
PROVIDERS: Physician Assistant Medical
DX: F32.A Depression, unspecified (principal); Z88.0 Allergy status to penicillin; Z90.49 Acquired absence of other specified parts of digestive tract; Z96.652 Presence of left artificial knee joint; Z95.5 Presence of coronary angioplasty implant and graft; Z98.51 Tubal ligation status; Z79.899 Other long term (current) drug therapy; Z20.822 Contact with and (suspected) exposure to COVID-19; Z98.890 Other specified postprocedural states; F17.200 Nicotine dependence, unspecified, uncomplicated